=== PATIENT | female | born 1955 | race American Indian/Alaskan Native ===

== ENCOUNTER 2019-06-06 07:06 | Emergency (ER) | payer SELFPAY ==
[2019-06-06 07:24] VITALS: BP 148/91
--- NOTE | 2019-06-06 08:38 | XRay Report ---
RIGHT KNEE HISTORY: Fall. Pain and swelling. COMPARISON: None. TECHNIQUE: 4 views of the right knee obtained. FINDINGS: Bones: No fracture or dislocation. Moderate osteopenia. Joint spaces: Moderately severe osteoarthritis with greater narrowing of the lateral joint space. Lar ge medial and lateral osteophytes. Patellofemoral osteophytes. No joint effusion. Soft tissues: No significant abnormality. Additional findings: None. IMPRESSION: 1. Osteoarthritis. 2. No apparent traumatic injury. Signer Name: Raymond Mcgill MD Signed: 06/06/2019 8:33 AM Workstation Name: [id number]
--- NOTE | 2019-06-06 09:29 | Emergency Department Report ---
Chief Complaint: Extremity Injury, Lower Stated Complaint: RIGHT LEG PAIN Time Seen by Provider: 06/06/19 09:23 - HPI History of Present Illness: 64-year-old -[place] female since to the emergency room for left knee pain status post fall 2 months ago. Patient is taking avif-rcc-ecnxvly medication without much relief. - Exam Vital Signs: Vital Signs 06/06/19 07:22 Temperature 98.5 F Pulse Rate 105 H Respiratory 16 Rate Blood Pressure 148/91 O2 Sat by Pulse 95 Oximetry Physical Exam: Alert and oriented 3 no acute distress Right knee full range of motion no swelling appreciated nonerythematous able to ambulate. MSE screening note: Focused history and physical exam performed. Due to findings the following was ordered: 64-year-old -[place] female since to the emergency room for left knee pain status post fall 2 months ago. Patient is taking [id number]-[id number] medication without much relief. X-ray of knee shows osteoarthritis no acute findings. ED Disposition for [facility] [place] Clinical Impression: Osteoarthritis of right knee, Knee pain, right anterior Disposition: [facility] SCREENING EXAM-LEFT Is pt being admited?: No Does the pt Need Aspirin: No Condition: Stable Additional Instructions: X-ray of right knee shows osteoarthritis. Continue taking pain medication follow-up with orthopedic provider. Referrals: CASSIE HUERTAS MD [Primary Care Provider] - 3-5 Days ANGELO MUNOZ MD [Staff Physician] - 3-5 Days
== END 2019-06-06 10:02 | disposition left against medical advice (07) ==
LOC: ED 07:06
DX: M17.11 Unilateral primary osteoarthritis, right knee (principal)
CPT/HCPCS: 99283